=== PATIENT | male | born 2000 | race Two or more races ===

== ENCOUNTER 2022-03-02 20:44 | Emergency (ER) | payer SELFPAY ==
[2022-03-02 22:53] LABS: C. TRACHOMATIS BY PCR NOT DETECTED; N. GONORRHOEAE BY PCR NOT DETECTED
[2022-03-03] MEDS ORDERED: Penicillin G Benzathine 1,200,000 Units/2 ML Syringe IM STA (02:49)
== END 2022-03-03 03:26 | disposition home or self-care (01) ==
LOC: MW.ED 20:44
DX: N48.89 Other specified disorders of penis (principal)
CPT/HCPCS: 36415; 81003; 86592; 87491; 87591; 96372; 99283; J0561

== ENCOUNTER 2022-04-13 20:05 | Emergency (ER) | payer SELFPAY | END 2022-04-13 21:40 | LOC: MW.ED 20:05 | DX: R07.9 Chest pain, unspecified (principal) | CPT/HCPCS: 71045; 71045-26; 99285 ==

== ENCOUNTER 2022-04-18 17:16 | Emergency (ER) | payer SELFPAY ==
[2022-04-18 18:45] LABS: BLOOD UREA NITROGEN,BUN 21 mg/dL (7.0-18.0); CARBON DIOXIDE,CO2 28.1 mmol/L (21.0-32.0); CHLORIDE,CL 100 mmol/L (98-107); GLUCOSE RANDOM 100 mg/dL (74-106); POTASSIUM,K 3.9 mmol/L (3.5-5.1); SODIUM,NA 138 mmol/L (136-148)
[2022-04-18 18:46] LABS: ESTIMATED GFR 97 mL/min (>60)
[2022-04-18 18:58] LABS: CORONAVIRUS COVID-19 NAA NEGATIVE (NEGATIVE); INFLUENZA A NAA NEGATIVE (NEGATIVE); INFLUENZA B NAA NEGATIVE (NEGATIVE)
== END 2022-04-18 19:57 | disposition home or self-care (01) ==
LOC: MW.ED 17:16
DX: R07.89 Other chest pain (principal); Z20.822 Contact with and (suspected) exposure to COVID-19
CPT/HCPCS: 0240U; 36415; 71045; 80053; 84443; 84484; 85025; 99285; 93010; 99283